=== PATIENT | female | born 2005 | race Two or more races ===

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

== ENCOUNTER 2024-01-07 20:13 | Emergency (ER) | payer BC ==
[2024-01-07] MEDS ORDERED: Ibuprofen 200 MG TAB ONE (20:52)
== END 2024-01-07 22:34 | disposition home or self-care (01) ==
LOC: MADERS 20:13
DX: S93.412A Sprain of calcaneofibular ligament of left ankle, initial encounter (principal); W18.42XA Slipping, tripping and stumbling without falling due to stepping into hole or opening, initial encounter; Y93.K1 Activity, walking an animal